=== PATIENT | male | born 1960 | race Caucasian/White ===

== ENCOUNTER 2018-10-02 11:51 | Inpatient (IN) | payer OTHER ==
[2018-10-02] MEDS ORDERED: POLYETHYLENE GLYCOL 3350 17 GM PKT PO PRN (13:52)
[2018-10-02] MEDS ORDERED: IBUPROFEN 200 MG TAB PO PRN (13:52)
[2018-10-02] MEDS ORDERED: ACETAMINOPHEN 325 MG SUPP PR PRN (13:52)
[2018-10-02] MEDS ORDERED: METHOCARBAMOL 750 MG TAB PO PRN (13:52)
[2018-10-02] MEDS ORDERED: ALPRAZolam 0.25 MG TAB PO PRN (13:52)
[2018-10-02] MEDS ORDERED: MIDODRINE HCL 10 MG TAB PO PRN (13:52)
[2018-10-02] MEDS ORDERED: TEARS/DEXTRAN 70/HYPROMELLOSE 15 ML OPHT.BTL EACHEYE PRN (14:21)
[2018-10-02] MEDS: ACET/CAFFEINE/BUTA FIORICET 1 EACH TAB PO PRN ×2 (14:47→21:47)
[2018-10-02] MEDS ORDERED: *MD ORDERING ONLY-MEDROL DOSE PAK PO SCH (15:30)
--- NOTE | 2018-10-02 17:44 | GHP ---
[f rep st] HISTORY AND PHYSICAL POST ADMISSION PHYSICIAN EVALUATION AND REHABILITATION TREATMENT PLAN DATE OF ADMISSION: 10/02/2018 DATE OF EVALUATION: October 02, 2018 TIME OF EVALUATION: 1555 REFERRING FACILITY: [facility] REFERRING PHYSICIAN: Dr Wong IMPAIRMENT GROUP: 1.1. DATE OF ONSET: 09/22/2018 REFERRING PHYSICIAN: Dr. Wong CONSULTING PHYSICIANS: He was seen by [facility], Dr. Hernandez, and Neurointerventional Radiology, Dr. Lujan. REHABILITATION DIAGNOSIS: Right-sided cerebrovascular accident with left hemiparesis, left dalila-neglect and dysphagia. ETIOLOGIC DIAGNOSIS: Left body involvement (right brain). DATE OF SURGERY: 09/26/2018 HISTORY OF PRESENT ILLNESS: This patient was admitted to [facility] on 09/22/2018 with headaches and light sensitivity, left-sided numbness and weakness, dizziness, gait abnormality, cognitive slowing and difficulty speaking. These symptoms had been ongoing for 2-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 He was not a tPA candidate because of the duration of symptoms. He was started on a heparin drip. On 09/25/2018, he had acute worsening of his left-sided deficits and was found to have a new right frontal MCA occlusion, as well as a right posterior division occlusion. On 09/26/2018, he had angioplasty and stent placement of the right internal carotid artery dissection/occlusion. Subsequent brain imaging showed evolution of right-sided cerebral infarctions involving the occipital, parietal and frontal lobes including white matter. During his hospitalization, he was treated with midodrine to keep blood pressure up, either prior or subsequent to the stenting. He was on multiple medications to treat the headache including ibuprofen, Fioricet methocarbamol and acetaminophen. Ultimately, he was placed on a Medrol Dosepak and has had a good response. Otherwise, he was medically stable and appropriate for inpatient rehabilitation. STUDIES AND LABS DURING HIS STAY: I do not have a comprehensive list. However , blood tests were unremarkable. Basic metabolic profile was normal but for slightly elevated blood glucoses of 108 and 111. CBCs were normal with no anemia or thrombocytopenia, and no elevated white count. PT and INR were normal. Lipid panel showed a cholesterol of 142, triglycerides of 150 and an HDL of 39. He had multiple brain imaging studies including CT angiograms, CT scans and MRI studies. The most recent study that I have access to is a CT head without contrast done on 09/29/2018. This showed (1) evolving infarcts in the right MCA distribution posteriorly, which were slightly more pronounced compared with 09/26/2018; (2) a tiny 2 mm area of hyperattenuation in the region of the infarct posteriorly, which was likely a tiny hemorrhage, and mild effacement of sulci in the region of the infarct with no shift in midline structures. Echocardiogram showed normal left ventricular systolic function, an ejection fraction of 65%, mild concentric LVH, normal diastolic function, enlarged right ventricle but normal right ventricular systolic function. He had mild aortic regurgitation, trace to mild mitral regurgitation, trace tricuspid regurgitation and a mildly enlarged right atrium. There was no evidence of an ASD or PFO. by bubble study. He had mild dilation of the proximal ascending aorta at 3.97 cm. PRECAUTIONS: He is a fall risk, and he has aspiration precautions. ACTIVE COMORBIDITIES: He has the tier 3 comorbidity of hemiparesis. Otherwise , there are no active tier 1, tier 2 or tier 3 comorbidities. PAST MEDICAL HISTORY: Hypertension. PAST SURGICAL HISTORY: He had a tonsillectomy as a child. PREHOSPITAL MEDICATIONS: He was taking losartan/hydrochlorothiazide and tamsulosin 0.4 mg p.o. daily. ADMISSION MEDICATIONS: 1. Acetaminophen/caffeine/butalbital 1 p.o. q.4 hours p.r.n. 2. Acetaminophen 650 mg p.o. q.6 hours p.r.n. 3. Alprazolam 0.25 mg p.o. q.6 hours p.r.n. 4. Aspirin 81 mg p.o. daily. 5. Atorvastatin 80 mg p.o. q.h.s. 6. Cetirizine 10 mg p.o. daily. 7. Clopidogrel 75 mg p.o. daily. 8. Fluoxetine 20 mg p.o. daily. 9. Ibuprofen 400 mg p.o. q.4-6 hours p.r.n. 10. Melatonin 6 mg p.o. q.h.s. p.r.n. 11. Methocarbamol 750 mg p.o. q.8 hours p.r.n. 12. Methylprednisolone on a Dosepak with tapering dose over 5 days. 13. Midodrine 10 mg p.o. daily p.r.n. systolic blood pressure less than 110. 14. Pantoprazole 40 mg p.o. daily. 15. Polyethylene glycol 17 g p.o. daily p.r.n. 16. Senna/docusate 1 tab p.o. b.i.d. 17. Tamsulosin 0.4 mg p.o. daily. 18. Artificial Tears. ALLERGIES: He has an allergy to doxycycline, which caused flu-like symptoms. PSYCHOSOCIAL HISTORY: He is and lives with his . He has 2 adult children. They are approximately 2 steps to enter the house and then there are 14 steps to get to the 2nd level. He can probably live on 1 level if he needs to. He quit smoking approximately 8 years ago. He works in [employer], and he is in the [employer]. FAMILY HISTORY: Noncontributory. He denies any history of aneurysms or blood clots. REVIEW OF SYSTEMS: He has a slight headache right now. It is not pounding, and his headaches have not been pounding. There are no vision changes associated with it and no nausea. He is aware of loss of sensation on his left cheek and in his left arm and leg, and he is aware of weakness in the left arm and leg. He denies fevers or chills, recent weight change, cough or dyspnea, nausea, vomiting, constipation or diarrhea. He has a good appetite. He denies dysuria or urinary frequency and had a good response to tamsulosin when it was begun. He denies joint pain or joint swelling. He denies calf tenderness. He has had insomnia in the hospital but slept well last night and this afternoon was able to take a nap after he arrived at [facility]. Otherwise, a 10-point review of systems is negative. PHYSICAL EXAMINATION: VITAL SIGNS: Blood pressure is 148/94. Heart rate is 58. Respiratory rate is 16. Oxygen saturation is 96% on room air. Temperature is 36.6 degrees centigrade. His weight is 84.1 kg. His body mass index is recorded at 36.2, but I believe his height measurement is probably erroneous as he does not appear to be very obese. HEENT: Extraocular movements are intact. Pupils are equal, round and reactive to light. Mucous membranes are moist. Dentition is in good condition. He has an uncrowded airway, Mallampati class 2. NECK: Supple with no bruits. HEART: There is a regular rate and rhythm with no murmurs, rubs or gallops. LUNGS: Clear to auscultation bilaterally. ABDOMEN: Soft, nontender, nondistended with normoactive bowel sounds and no hepatosplenomegaly. EXTREMITIES: There is no cyanosis, clubbing or edema. Radial and dorsalis pedis pulses are 2+ bilaterally. There is no calf tenderness. NEUROLOGIC: He is alert and oriented x3. Cranial nerves 2-12 are grossly intact, though he has a mild left facial droop and some loss of sensation in the left periorbital region. He has full range of motion and near full strength at the left trapezius, deltoid, biceps and triceps. He is very weak at the left wrist and finger flexion/ extension. He can supinate and pronate the left forearm and has antigravity strength at the wrist. Left leg overall is 4 to 4+ over 5. Motor strength on the right is normal. He has reduced sensation to light touch on the left upper and lower extremities. He has loss of sensation in the left leg with double simultaneous stimulation of the left and right. Deep tendon reflexes are 2+ bilaterally at the biceps, patellar and Achilles tendons. Visual lazcano by confrontation show a left lower quadrant visual field deficit. SKIN: There are no skin rashes or skin breakdown. CURRENT LEVEL OF FUNCTION: Per the preadmission screen, he had dysphagia and was on a dysphagia 3 diet with thin liquids. Grooming was done with setup and supervision from the seated position. Bathing required minimal assistance. Dressing required moderate assistance for the upper body and minimal assistance for his socks. Toileting required minimal assist. Bed mobility required minimal assist. Transfers [id number] required minimal assist including toilet and shower transfers. He was using a dalila walker. Seated balance: Static was considered intact. Dynamic required standby assist. Standing balance: Static required close standby assist and dynamic required minimal assist. He had decreased endurance. He was able to walk 100 feet with a dalila walker and minimal assist. There were 2 episodes of loss of balance requiring moderate assist. Communication was intact. Regarding cognition, he was observed to have left neglect. He could follow simple direction. He required some repetition for new learning. He had impaired judgment and impaired problem solving. On today's exam, he appears to have improved strength on the left upper and lower extremities and improved bed mobility compared to the preadmission screen. Otherwise, there are no significant changes. IMPRESSION: This is a 58-year-old man who had bilateral carotid dissections and a right internal carotid artery occlusion. These caused cerebrovascular accidents throughout the right cerebral hemisphere, but most prominently in the posterior right frontal lobe. He underwent stenting of the right internal carotid artery and has had resumption of blood flow, and he has had some improvement in his symptoms of left hemiparesis. He has associated hypertension and was on an antihypertensive medication, which is no longer being given at present. He was being treated with midodrine to maintain a systolic blood pressure above 110. In the hospital for stroke treatment, he had initiation of aspirin, clopidogrel and a statin medication. He also had treatment of headache, which apparently was quite problematic, and ultimately is being treated with a Medrol Dosepak. He had insomnia which is improving. Fluoxetine was begun presumably for neuro recovery. He was medically stable and appropriate for inpatient rehabilitation. His goal is to complete a rehabilitation stay and then return home with his family and supportive services. For a safe discharge, he will need to advance to modified independent level with self-care and functional mobility using the least restrictive device. He will need to demonstrate safety and insight and be able to carry out daily functions safely and independently. He will have therapy with physical therapy, occupational therapy, and speech and language pathology for 60 minutes per day for each discipline on 5-7 days of the week. His expected duration of stay is 10-14 days. Upon discharge, it is anticipated that he will continue to benefit from outpatient occupational therapy, speech and language pathology, and physical therapy, as well as a stroke support group. PLAN: 1. Cerebrovascular accident due to bilateral carotid and right internal carotid artery dissection and occlusion, status post stenting of the right internal carotid artery. PT and OT to optimize mobility and activities of daily living toward the modified independent level. 2. Dysphagia and possible cognitive effects of cerebrovascular accident to be assessed and treated per speech and language pathology. Continue dysphagia 3 diet initially. 3. Secondary prevention of CVA. Continue aspirin and clopidogrel. Presumably , he requires the clopidogrel because of the presence of a stent. Continue atorvastatin. Attention to blood pressure and initiate antihypertensive medication as indicated. Per conversation with on-call hospitalist at [facility], 10/02/2018, blood pressure parameters are to keep systolic between 110 and 160. 4. Headaches, likely related to carotid artery dissections. He may have relief of headaches as he sleeps better. Will continue the Medrol Dosepak, as well as methocarbamol and acetaminophen. Will discontinue ibuprofen due to increased risk of GI bleed, together with the other antiplatelet agents and the methylprednisolone. 5. Seasonal allergies, on cetirizine. 6. BPH, on tamsulosin. 7. Followup per hospital discharge paperwork is planned with Dr. Lujan with Neurointerventional Radiology in approximately 2 weeks and with primary care provider, Dr. Jet Leroy, after his discharge from rehabilitation. /[id number]/MODL MTDD
[2018-10-02] MEDS: ATORVASTATIN CALCIUM 40 MG TAB PO SCH (20:49)
[2018-10-02] MEDS: SENNOSIDES/DOCUSATE SODIUM TAB PO SCH (20:50)
[2018-10-02] MEDS ORDERED: MELATONIN 3 MG TAB PO PRN (21:00)
[2018-10-02] MEDS ORDERED: methylPREDNISolone 4 MG TAB PO SCH (21:00)
[2018-10-03] MEDS: ACET/CAFFEINE/BUTA FIORICET 1 EACH TAB PO PRN ×2 (06:04→23:00)
[2018-10-03] MEDS: TAMSULOSIN HCL 0.4 MG CAP PO SCH (08:35)
[2018-10-03] MEDS: FLUoxetine 20 MG CAP PO SCH (08:35)
[2018-10-03] MEDS: ASPIRIN EC 81 MG TAB PO SCH (08:35)
[2018-10-03] MEDS: CLOPIDOGREL BISULFATE 75 MG TAB PO SCH (08:35)
[2018-10-03] MEDS: SENNOSIDES/DOCUSATE SODIUM TAB PO SCH ×2 (08:35→21:09)
[2018-10-03] MEDS: PANTOPRAZOLE SODIUM 40 MG TAB PO SCH (08:35)
[2018-10-03] MEDS: CETIRIZINE 10 MG TAB PO SCH (08:35)
[2018-10-03] MEDS: methylPREDNISolone 4 MG TAB PO SCH ×4 (08:35→21:09)
--- NOTE | 2018-10-03 11:01 | PDOREHIP ---
Admission [facility] - Admission - 3 Day Assessment Period Admission Date/Day 1: 10/02/18 Day 2: 10/03/18 Day 3: 10/04/18 - Active Diagnoses Comorbidities and Co-existing Conditions at Admission: 74925. None of the Above - Skin Conditions Unhealed Pressure Ulcer (1 or more/Stage 1 or >)-Admission: 0. No # Stage 1 Pressure Ulcers-Admission: 0 # Stage 2 Pressure Ulcers-Admission: 0 # Stage 3 Pressure Ulcers-Admission: 0 # Stage 4 Pressure Ulcers-Admission: 0 # Unstageable Pressure Ulcers (Non-remove Dress)-Admission: 0 # Unstageable Pressure Ulcers (Slough/Eschar)-Admission: 0 # Unstageable Pressure Ulcers (Deep Tissue Injury)-Admission: 0
--- NOTE | 2018-10-03 11:01 | SOAPPROG ---
SOAP Progress Note Assessment/Plan: Assessment: Cerebrovascular accident due to bilateral carotid and right internal carotid artery dissection and occlusion, status post stenting of the right internal carotid artery. PT and OT to optimize mobility and activities of daily living toward the modified independent level. Dysphagia and possible cognitive effects of cerebrovascular accident to be assessed and treated per speech and language pathology. Continue dysphagia 3 diet initially. Secondary prevention of CVA. Continue aspirin and clopidogrel. Continue atorvastatin. Attention to blood pressure and initiate antihypertensive medication as indicated. Per conversation with on-call hospitalist at [facility], 10/02/2018, blood pressure parameters are to keep systolic between 110 and 160. Headaches, likely related to carotid artery dissections. He may have relief of headaches as he sleeps better. Will continue the Medrol Dosepak, as well as methocarbamol and acetaminophen. Will discontinue ibuprofen due to increased risk of GI bleed, together with the other antiplatelet agents and the methylprednisolone. Seasonal allergies, on cetirizine. BPH, on tamsulosin. Followup per hospital discharge paperwork is planned with Dr. Lujan with Neurointerventional Radiology in approximately 2 weeks and with primary care provider, Dr. Jet Leroy, after his discharge from rehabilitation. 10/03/18 12:03 Subjective: Awoke at night with headache. Per chart review, no medication was given. He was able to return to sleep. Had headache upon arising in the morning and was given Fioricet. Headache is right-sided originating in the neck and radiating towards his eye. It is not pounding. There is no associated nausea. Otherwise without complaints. Good appetite, no nausea, vomiting, constipation , diarrhea, no cough or dyspnea, no fevers or chills. Objective: Vital Signs Temp Pulse Resp BP Pulse Ox 36.4 C 56 L 18 154/100 H 93 10/03/18 08:00 10/03/18 08:00 10/03/18 08:00 10/03/18 08:00 10/03/18 08:00 10/02/18 10/03/18 10/04/18 05:59 05:59 05:59 Intake Total 420 240 Output Total 400 Balance 420 -160 Physical Exam - Physical Exam General Appearance: WD/WN, alert, no apparent distress Respiratory: normal breath sounds, No crackles, No rhonchi, No wheezing Cardiac/Chest: regular rate, rhythm, No edema, No diastolic murmur, No systolic murmur Skin: normal color, warm/dry Neuro/Psych: alert, normal mood/affect, oriented x 3, motor weakness (Left upper and lower extremities) ICD10 Worksheet Patient Problems: Problems Problem Status Onset CVA (cerebral vascular accident) Acute
[2018-10-03] MEDS: ACETAMINOPHEN 325 MG TAB PO PRN (15:32)
[2018-10-03] MEDS: ATORVASTATIN CALCIUM 40 MG TAB PO SCH (21:08)
[2018-10-04] MEDS: CLOPIDOGREL BISULFATE 75 MG TAB PO SCH (08:25)
[2018-10-04] MEDS: FLUoxetine 20 MG CAP PO SCH (08:25)
[2018-10-04] MEDS: methylPREDNISolone 4 MG TAB PO SCH ×3 (08:25→21:32)
[2018-10-04] MEDS: SENNOSIDES/DOCUSATE SODIUM TAB PO SCH ×2 (08:25→21:32)
[2018-10-04] MEDS: CETIRIZINE 10 MG TAB PO SCH (08:25)
[2018-10-04] MEDS: PANTOPRAZOLE SODIUM 40 MG TAB PO SCH (08:25)
[2018-10-04] MEDS: TAMSULOSIN HCL 0.4 MG CAP PO SCH (08:25)
[2018-10-04] MEDS: ASPIRIN EC 81 MG TAB PO SCH (08:26)
[2018-10-04] MEDS: ACETAMINOPHEN 325 MG TAB PO PRN ×2 (09:13→14:58)
--- NOTE | 2018-10-04 11:50 | SOAPPROG ---
SOAP Progress Note Assessment/Plan: Assessment: Cerebrovascular accident due to bilateral carotid and right internal carotid artery dissection and occlusion, status post stenting of the right internal carotid artery. * Initial functional independence measure is 79 on 10/04/2018. Standby assist for bed mobility and transfers. Ambulated 200 ft with standby assist to contact guard assist using a quad cane. Shows decreased motor planning and decreased proprioception on the left upper extremity. Did grooming and hygiene standing. Required positioning of the left hand. Was unable to locate the toothbrush which was on the left side of the sink. Minimal assist for upper body and lower body dressing. * Continue PT and OT to optimize mobility and activities of daily living toward the modified independent level. Dysphagia and cognitive effects of cerebrovascular accident. * Continue dysphagia 3 diet initially. * Moderate deficits to attention, executive function, problem solving and reasoning. * Continue FOOD INSPECTOR. Secondary prevention of CVA. Continue aspirin and clopidogrel. Continue atorvastatin. Attention to blood pressure and initiate antihypertensive medication as indicated. Per conversation with on-call hospitalist at [facility], 10/02/2018, blood pressure parameters are to keep systolic between 110 and 160. Headaches, likely related to carotid artery dissections. He may have relief of headaches as he sleeps better. Will continue the Medrol Dosepak, as well as methocarbamol and acetaminophen. Will discontinue ibuprofen due to increased risk of GI bleed, together with the other antiplatelet agents and the methylprednisolone. Elevated blood pressure and history of hypertension. * Observe for improvement as methylprednisolone is tapered. Consider restart of losartan. Seasonal allergies, on cetirizine. BPH, on tamsulosin. DISPOSITION: Attended staffing, 15 min. Discussed with case management, nursing, dietitian, PT, OT, FOOD INSPECTOR. Lives at home with and for other adults including adopted son and a homeless friend of the son. Had been working 2 jobs as well as serving in the [employer]. Was considering selling home and moving to . Case Management to work with patient and family are. Plans given his level of disability. Tentative discharge date set for 10/16/2018. Followup per hospital discharge paperwork is planned with Dr. Lujan with Neurointerventional Radiology in approximately 2 weeks (after discharge 2018) and with primary care provider, Dr. Jet Leroy. 10/04/18 11:44 Subjective: Had headache overnight, which responded to medication. Currently headache is approximately 2/10. Otherwise without complaints. No cough or dyspnea, no fevers or chills.. Other than awakening in pain, overall he slept well. Objective: Vital Signs Temp Pulse Resp BP Pulse Ox 36.6 C 66 16 137/91 H 92 10/04/18 05:21 10/04/18 10:13 10/04/18 05:21 10/04/18 10:13 10/04/18 05:21 10/03/18 10/04/18 10/05/18 05:59 05:59 05:59 Intake Total 420 1180 Output Total 1999 Balance 420 -820 - Time Spent With Patient Time Spent With Patient: Greater than 35 min floor time today, including more than 50% of time in coordination of care during staffing meeting, and counseling patient and . Physical Exam - Physical Exam General Appearance: WD/WN, alert, no apparent distress Respiratory: normal breath sounds, No crackles, No rhonchi, No wheezing Cardiac/Chest: regular rate, rhythm, No diastolic murmur, No systolic murmur Skin: normal color, warm/dry Neuro/Psych: alert, normal mood/affect, oriented x 3, motor weakness (Left upper extremity) ICD10 Worksheet Patient Problems: Problems Problem Status Onset CVA (cerebral vascular accident) Acute
[2018-10-04] MEDS: ATORVASTATIN CALCIUM 40 MG TAB PO SCH (21:32)
[2018-10-05] MEDS: ACET/CAFFEINE/BUTA FIORICET 1 EACH TAB PO PRN ×2 (06:44→13:34)
[2018-10-05] MEDS: methylPREDNISolone 4 MG TAB PO SCH ×2 (07:28→20:52)
[2018-10-05] MEDS: SENNOSIDES/DOCUSATE SODIUM TAB PO SCH ×2 (08:48→21:07)
[2018-10-05] MEDS: CLOPIDOGREL BISULFATE 75 MG TAB PO SCH (08:48)
[2018-10-05] MEDS: FLUoxetine 20 MG CAP PO SCH (08:48)
[2018-10-05] MEDS: ASPIRIN EC 81 MG TAB PO SCH (08:49)
[2018-10-05] MEDS: TAMSULOSIN HCL 0.4 MG CAP PO SCH (08:49)
[2018-10-05] MEDS: PANTOPRAZOLE SODIUM 40 MG TAB PO SCH (08:49)
[2018-10-05] MEDS: CETIRIZINE 10 MG TAB PO SCH (08:49)
--- NOTE | 2018-10-05 11:55 | SOAPPROG ---
SOAP Progress Note Assessment/Plan: Assessment: Cerebrovascular accident due to bilateral carotid and right internal carotid artery dissection and occlusion, status post stenting of the right internal carotid artery. * Initial functional independence measure is 79 on 10/04/2018. Standby assist for bed mobility and transfers. Ambulated 200 ft with close standby assist to contact guard assist using a quad cane. Shows decreased motor planning and decreased proprioception on the left upper extremity. Did grooming and hygiene standing. Required positioning of the left hand. Was unable to locate the toothbrush which was on the left side of the sink. Minimal assist for upper body and lower body dressing. * Has fall risk. Has decreased insight and judgment. Risk is compounded by the left visual field cut and left hemineglect. He requires continual supervision. * Continue PT and OT to optimize mobility and activities of daily living toward the modified independent level. Dysphagia and cognitive effects of cerebrovascular accident. * Continue dysphagia 3 diet initially. * Moderate deficits to attention, executive function, problem solving and reasoning. * Continue ASSISTANT MANAGER/EMBALMER. Secondary prevention of CVA. Continue aspirin and clopidogrel. Continue atorvastatin. Attention to blood pressure and initiate antihypertensive medication as indicated. Per conversation with on-call hospitalist at [facility], 10/02/2018, blood pressure parameters are to keep systolic between 110 and 160. Headaches, likely related to carotid artery dissections. He may have relief of headaches as he sleeps better. Will continue the Medrol Dosepak, as well as methocarbamol and acetaminophen. Will discontinue ibuprofen due to increased risk of GI bleed, together with the other antiplatelet agents and the methylprednisolone. * Will schedule acetaminophen at bedtime starting 10/05/2018 to try to prevent midnight headaches. Elevated blood pressure and history of hypertension. * Observe for improvement as methylprednisolone is tapered. Consider restart of losartan. Seasonal allergies, on cetirizine. BPH, on tamsulosin. DISPOSITION: Attended staffing, 15 min, 10/04/2018.. Discussed with case management, nursing, dietitian, PT, OT, ASSISTANT MANAGER/EMBALMER. Lives at home with and for other adults including adopted son and a homeless friend of the son. Had been working 2 jobs as well as serving in the [employer]. Was considering selling home and moving to . Case Management to work with patient and family are. Plans given his level of disability. Tentative discharge date set for 2018. Followup per hospital discharge paperwork is planned with Dr. Lujan with Neurointerventional Radiology in approximately 2 weeks (after discharge 2018) and with primary care provider, Dr. Jet Leroy. 10/05/18 11:51 Subjective: No complaints. Slept well. No fevers or chills, no cough or dyspnea. Had headache overnight sometime after midnight, resolved with Fioricet. Objective: Vital Signs Temp Pulse Resp BP Pulse Ox 36.4 C 59 L 16 155/96 H 95 10/05/18 06:33 10/05/18 06:33 10/05/18 06:33 10/05/18 06:33 10/05/18 06:33 10/04/18 10/05/18 10/06/18 05:59 05:59 05:59 Intake Total 1180 800 710 Output Total 1999 2350 200 Balance -820 -1550 510 Physical Exam - Physical Exam General Appearance: WD/WN, alert, no apparent distress Respiratory: normal breath sounds, No crackles, No rhonchi, No wheezing Cardiac/Chest: regular rate, rhythm, No diastolic murmur, No systolic murmur Skin: normal color, warm/dry Neuro/Psych: alert, normal mood/affect, oriented x 3, motor weakness (Left upper extremity) ICD10 Worksheet Patient Problems: Problems Problem Status Onset CVA (cerebral vascular accident) Acute
[2018-10-05] MEDS: ATORVASTATIN CALCIUM 40 MG TAB PO SCH (20:52)
[2018-10-05] MEDS: ACETAMINOPHEN 325 MG TAB PO SCH (20:52)
[2018-10-06] MEDS: ACETAMINOPHEN 325 MG TAB PO PRN ×3 (07:25→19:49)
[2018-10-06] MEDS ORDERED: methylPREDNISolone 4 MG TAB PO SCH (07:30)
[2018-10-06] MEDS: CETIRIZINE 10 MG TAB PO SCH (07:56)
[2018-10-06] MEDS: CLOPIDOGREL BISULFATE 75 MG TAB PO SCH (07:56)
[2018-10-06] MEDS: FLUoxetine 20 MG CAP PO SCH (07:56)
[2018-10-06] MEDS: SENNOSIDES/DOCUSATE SODIUM TAB PO SCH ×2 (07:56→21:24)
[2018-10-06] MEDS: TAMSULOSIN HCL 0.4 MG CAP PO SCH (07:56)
[2018-10-06] MEDS: PANTOPRAZOLE SODIUM 40 MG TAB PO SCH (07:57)
[2018-10-06] MEDS: ASPIRIN EC 81 MG TAB PO SCH (07:57)
--- NOTE | 2018-10-06 11:04 | SOAPPROG ---
SOAP Progress Note Assessment/Plan: Assessment: Cerebrovascular accident due to bilateral carotid and right internal carotid artery dissection and occlusion, status post stenting of the right internal carotid artery. * Initial functional independence measure is 79 on 10/04/2018. Standby assist for bed mobility and transfers. Ambulated 200 ft with close standby assist to contact guard assist using a quad cane. Shows decreased motor planning and decreased proprioception on the left upper extremity. Did grooming and hygiene standing. Required positioning of the left hand. Was unable to locate the toothbrush which was on the left side of the sink. Minimal assist for upper body and lower body dressing. * Has fall risk. Has decreased insight and judgment. Risk is compounded by the left visual field cut and left hemineglect. He requires continual supervision. * Continue PT and OT to optimize mobility and activities of daily living toward the modified independent level. Dysphagia and cognitive effects of cerebrovascular accident. * Continue dysphagia 3 diet initially. * Moderate deficits to attention, executive function, problem solving and reasoning. 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 Secondary prevention of CVA. Continue aspirin and clopidogrel. Continue atorvastatin. Attention to blood pressure and initiate antihypertensive medication as indicated. Per conversation with on-call hospitalist at [facility], 10/02/2018, blood pressure parameters are to keep systolic between 110 and 160. Headaches, likely related to carotid artery dissections. He may have relief of headaches as he sleeps better. Will continue the Medrol Dosepak, as well as methocarbamol and acetaminophen. Will discontinue ibuprofen due to increased risk of GI bleed, together with the other antiplatelet agents and the methylprednisolone. * Slept well after initiating scheduled acetaminophen at bedtime starting 2018 to try to prevent midnight headaches. Elevated blood pressure and history of hypertension. * Observe for improvement as methylprednisolone is tapered; last dose is 2017. Consider restart of losartan.. Seasonal allergies, on cetirizine. BPH, on tamsulosin. DISPOSITION: Attended staffing, 15 min, 10/04/2018.. Discussed with case management, nursing, dietitian, PT, OT, CONTROL INTEGRATION ENGINEER. Lives at home with and for other adults including adopted son and a homeless friend of the son. Had been working 2 jobs as well as serving in the [employer]. Was considering selling home and moving to . Case Management to work with patient and family are. Plans given his level of disability. Tentative discharge date set for 2018. Followup per hospital discharge paperwork is planned with Dr. Lujan with Neuro[facility] in approximately 2 weeks (after discharge 2018) and with primary care provider, Dr. Jet Leroy. 10/06/18 11:02 Subjective: No complaints. Notes improved movement of his left hand. Has not had any improvement in sensation however. Did not awaken with pain overnight but had a headache in the morning for which he took acetaminophen. Objective: Vital Signs Temp Pulse Resp BP Pulse Ox 36.5 C 57 L 18 149/98 H 92 10/06/18 05:08 10/06/18 05:08 10/06/18 05:08 10/06/18 05:08 10/06/18 05:08 10/05/18 10/06/18 10/07/18 05:59 05:59 05:59 Intake Total 800 1710 240 Output Total 2350 200 1 Balance -1550 1510 239 Physical Exam - Physical Exam General Appearance: WD/WN, alert, no apparent distress Respiratory: normal breath sounds, No crackles, No rhonchi, No wheezing Cardiac/Chest: regular rate, rhythm, No edema, No diastolic murmur, No systolic murmur Skin: normal color, warm/dry Neuro/Psych: alert, normal mood/affect, oriented x 3, motor weakness (Left upper extremity. Shows improved movement of wrist and fingers.), sensory deficit (Left upper extremity) ICD10 Worksheet Patient Problems: Problems Problem Status Onset CVA (cerebral vascular accident) Acute
[2018-10-06] MEDS: ACET/CAFFEINE/BUTA FIORICET 1 EACH TAB PO PRN (20:23)
[2018-10-06] MEDS: ATORVASTATIN CALCIUM 40 MG TAB PO SCH (21:24)
[2018-10-06] MEDS: ACETAMINOPHEN 325 MG TAB PO SCH (21:47)
[2018-10-06] MEDS ORDERED: hydrALAZINE 10 MG TAB PO ONE (22:00)
[2018-10-07] MEDS: ACETAMINOPHEN 325 MG TAB PO PRN ×2 (03:48→10:29)
[2018-10-07] MEDS: ACET/CAFFEINE/BUTA FIORICET 1 EACH TAB PO PRN ×2 (06:37→18:47)
[2018-10-07] MEDS: ASPIRIN EC 81 MG TAB PO SCH (08:41)
[2018-10-07] MEDS: PANTOPRAZOLE SODIUM 40 MG TAB PO SCH (08:41)
[2018-10-07] MEDS: CETIRIZINE 10 MG TAB PO SCH (08:41)
[2018-10-07] MEDS: SENNOSIDES/DOCUSATE SODIUM TAB PO SCH ×2 (08:41→21:07)
[2018-10-07] MEDS: TAMSULOSIN HCL 0.4 MG CAP PO SCH (08:41)
[2018-10-07] MEDS: CLOPIDOGREL BISULFATE 75 MG TAB PO SCH (08:41)
[2018-10-07] MEDS: FLUoxetine 20 MG CAP PO SCH (08:41)
[2018-10-07] MEDS: LOSARTAN POTASSIUM 25 MG TAB PO SCH (08:48)
--- NOTE | 2018-10-07 09:09 | SOAPPROG ---
SOAP Progress Note Assessment/Plan: Assessment/Plan: Cerebrovascular accident due to bilateral carotid and right internal carotid artery dissection and occlusion, status post stenting of the right internal carotid artery. * Initial functional independence measure is 79 on 10/04/2018. Standby assist for bed mobility and transfers. Ambulated 200 ft with close standby assist to contact guard assist using a quad cane. Shows decreased motor planning and decreased proprioception on the left upper extremity. Did grooming and hygiene standing. Required positioning of the left hand. Was unable to locate the toothbrush which was on the left side of the sink. Minimal assist for upper body and lower body dressing. * Has fall risk. Has decreased insight and judgment. Risk is compounded by the left visual field cut and left hemineglect. He requires continual supervision. * Continue PT and OT to optimize mobility and activities of daily living toward the modified independent level. Dysphagia and cognitive effects of cerebrovascular accident. * Upgrade to a regular diet on 10/06 - monitor for any aspiration * Moderate deficits to attention, executive function, problem solving and reasoning. 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 Secondary prevention of CVA. Continue aspirin and clopidogrel. Continue atorvastatin. Attention to blood pressure and initiate antihypertensive medication as indicated. Per conversation with on-call hospitalist at [facility], 10/02/2018, blood pressure parameters are to keep systolic between 110 and 160. Headaches, likely related to carotid artery dissections. Significant pain on night of 10/06- responded to meds and no Neurologic changes. * Completed Medrol Dosepak 10/05 as well as methocarbamol and acetaminophen. * Discontinued ibuprofen due to increased risk of GI bleed, together with the other antiplatelet agents and the methylprednisolone. Elevated blood pressure and history of hypertension. * Restarted Losartan 25mg on 10/07. * Add prn hydralazine as we monitor for BP's >170. Seasonal allergies, on cetirizine. BPH, on tamsulosin. DISPOSITION: Discussed with case RN and OT. Lives at home with and for other adults including adopted son and a homeless friend of the son. Had been working 2 jobs as well as serving in the [employer]. Was considering selling home and moving to . Case Management to work with patient and family are. Plans given his level of disability. Tentative discharge date set for 2018. Followup per hospital discharge paperwork is planned with Dr. Lujan with Neurointerventional Radiology in approximately 2 weeks (after discharge 2018) and with primary care provider, Dr. Jet Leroy. 10/07/18 09:05 Subjective: doing well this morning. Pain around 2-3/10. Reports that had a significant incident of pain last night. Had been in a hot shower for a time. Was pretty excruciating. This travel writer was called and per RN report - no change in neurologic presentation. Pt was given meds and brought to bed and the pain did subside. BP was pretty elevated at around 170. doing well this morning. - no fevers/chills, Objective: Vital Signs Temp Pulse Resp BP Pulse Ox 97.7 F 60 15 157/110 H 93 10/07/18 06:22 10/07/18 07:20 10/07/18 06:22 10/07/18 08:48 10/07/18 06:22 10/06/18 10/07/18 10/08/18 05:59 05:59 05:59 Intake Total 1710 465 250 Output Total 200 1 Balance 1510 464 250 Physical Exam - Physical Exam General Appearance: alert, no apparent distress, other (Sitting at the breakfast table eating with his ) EENT: other (Left sided droop, mmm, Has difficulty maintaining food on the left side. ) Respiratory: other (Non-labored breathing. no audible wheezing. ) Cardiac/Chest: regular rate, rhythm Abdomen: non-tender Skin: normal color Neuro/Psych: alert, other (Interacted well and able to answer questions. Decreased to absent sensation through the left side. Left hemineglect - requires some cueing at times. pretty good vision to the left. Strength - 4/5 for biceps/shoulder abduction, 4+/5 triceps, 3/5 for we, ff) ICD10 Worksheet Patient Problems: Problems Problem Status Onset CVA (cerebral vascular accident) Acute
[2018-10-07] MEDS ORDERED: hydrALAZINE 10 MG TAB PO PRN (10:00)
[2018-10-07] MEDS: ACETAMINOPHEN 325 MG TAB PO SCH (21:07)
[2018-10-07] MEDS: ATORVASTATIN CALCIUM 40 MG TAB PO SCH (21:07)
[2018-10-08] MEDS: ACETAMINOPHEN 325 MG TAB PO PRN ×2 (06:33→18:07)
[2018-10-08] MEDS: SENNOSIDES/DOCUSATE SODIUM TAB PO SCH ×2 (08:15→21:06)
[2018-10-08] MEDS: PANTOPRAZOLE SODIUM 40 MG TAB PO SCH (08:15)
[2018-10-08] MEDS: TAMSULOSIN HCL 0.4 MG CAP PO SCH (08:15)
[2018-10-08] MEDS: FLUoxetine 20 MG CAP PO SCH (08:15)
[2018-10-08] MEDS: ASPIRIN EC 81 MG TAB PO SCH (08:15)
[2018-10-08] MEDS: CLOPIDOGREL BISULFATE 75 MG TAB PO SCH (08:15)
[2018-10-08] MEDS: LOSARTAN POTASSIUM 25 MG TAB PO SCH (08:16)
[2018-10-08] MEDS: CETIRIZINE 10 MG TAB PO SCH (08:16)
--- NOTE | 2018-10-08 09:53 | SOAPPROG ---
SOAP Progress Note Assessment/Plan: Assessment/Plan: Cerebrovascular accident due to bilateral carotid and right internal carotid artery dissection and occlusion, status post stenting of the right internal carotid artery. * Initial functional independence measure is 79 on 10/04/2018. Standby assist for bed mobility and transfers. Ambulated 200 ft with close standby assist to contact guard assist using a quad cane. Shows decreased motor planning and decreased proprioception on the left upper extremity. Did grooming and hygiene standing. Required positioning of the left hand. Was unable to locate the toothbrush which was on the left side of the sink. Minimal assist for upper body and lower body dressing. * Has fall risk. Has decreased insight and judgment. Risk is compounded by the left visual field cut and left hemineglect. He requires continual supervision. * Continue PT and OT to optimize mobility and activities of daily living toward the modified independent level. Dysphagia and cognitive effects of cerebrovascular accident. * Upgrade to a regular diet on 10/06 - monitor for any aspiration * Moderate deficits to attention, executive function, problem solving and reasoning. 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 Secondary prevention of CVA. * Continue aspirin and clopidogrel. Continue atorvastatin. * Per conversation with on-call hospitalist at [facility], 10/02/2018 , blood pressure parameters are to keep systolic between 110 and 160. Headaches, likely related to carotid artery dissections. Significant pain on night of 10/06- responded to meds and no Neurologic changes. * Completed Medrol Dosepak 10/05 * Continued on methocarbamol, acetaminophen, fiorecet - We discussed to rely more on the tylenol as the others shouldn't be fpc meds. * Discontinued ibuprofen due to increased risk of GI bleed, together with the other antiplatelet agents and the methylprednisolone. * Discussed the importance of staying well hydrated as well as taking appropriate breaks through out the day. Pt had a much better on 10/07. Elevated blood pressure and history of hypertension. * Restarted Losartan 25mg on 10/07. Continue to monitor and make adjustments as indicated. * Add prn hydralazine as we monitor for BP's >170. Seasonal allergies, on cetirizine. BPH * on tamsulosin. * Had been receiving bladder scans - Will have those d/c'd 10/08 - They have been low DISPOSITION: Discussed with case RN and OT. Lives at home with and for other adults including adopted son and a homeless friend of the son. Had been working 2 jobs as well as serving in the [employer]. Was considering selling home and moving to . Case Management to work with patient and family are. Plans given his level of disability. Tentative discharge date set for 2018. Followup per hospital discharge paperwork is planned with Dr. Lujan with Neurointerventional Radiology in approximately 2 weeks (after discharge 2018) and with primary care provider, Dr. Jet Leroy. 10/08/18 09:48 Subjective: Feeling pretty good this morning. Had a much better yesterday. Did try to be much better about not 'overdoing' it and allowing himself to rest/listen to his body. We again discussed the progression of neurologic recovery and the time frame it allows. Introduced discussion about return to work and also about Assistive technology tools that he can learn to use for work when that time is right. No fevers/chills. MITCHELL yesterday really only ever around a 2-08/06. Encouraged good hydration. Objective: Vital Signs Temp Pulse Resp BP Pulse Ox 98.7 F 54 L 15 124/93 H 94 10/08/18 06:32 10/08/18 06:32 10/08/18 06:32 10/08/18 08:16 10/08/18 06:32 10/07/18 10/08/18 10/09/18 05:59 05:59 05:59 Intake Total 465 1150 Output Total 1 Balance 464 1150 Physical Exam - Physical Exam General Appearance: alert, no apparent distress, other (Was walking back from the bathroom to his chair with the support of his . did pretty well observing things to the left during this gait pattern) EENT: other (mmm) Respiratory: lungs clear, normal breath sounds Cardiac/Chest: regular rate, rhythm Abdomen: non-tender, soft Skin: normal color Extremities: other (Has kinesiotape over the left upper extremity) Neuro/Psych: alert, normal mood/affect, other (Answers direct questions well. ) ICD10 Worksheet Patient Problems: Problems Problem Status Onset CVA (cerebral vascular accident) Acute
[2018-10-08] MEDS: ATORVASTATIN CALCIUM 40 MG TAB PO SCH (21:06)
[2018-10-08] MEDS: ACETAMINOPHEN 325 MG TAB PO SCH (23:42)
[2018-10-09] MEDS: ACETAMINOPHEN 325 MG TAB PO PRN ×2 (05:37→13:22)
[2018-10-09] MEDS: CLOPIDOGREL BISULFATE 75 MG TAB PO SCH (08:09)
[2018-10-09] MEDS: ASPIRIN EC 81 MG TAB PO SCH (08:09)
[2018-10-09] MEDS: TAMSULOSIN HCL 0.4 MG CAP PO SCH (08:09)
[2018-10-09] MEDS: FLUoxetine 20 MG CAP PO SCH (08:09)
[2018-10-09] MEDS: CETIRIZINE 10 MG TAB PO SCH (08:09)
[2018-10-09] MEDS: LOSARTAN POTASSIUM 25 MG TAB PO SCH (08:09)
[2018-10-09] MEDS: PANTOPRAZOLE SODIUM 40 MG TAB PO SCH (08:09)
[2018-10-09] MEDS: SENNOSIDES/DOCUSATE SODIUM TAB PO SCH ×2 (08:12→20:50)
--- NOTE | 2018-10-09 13:10 | SOAPPROG ---
SOAP Progress Note Assessment/Plan: Assessment: Cerebrovascular accident due to bilateral carotid and right internal carotid artery dissection and occlusion, status post stenting of the right internal carotid artery. * Initial functional independence measure is 79 on 10/04/2018, improved to 93 as of 10/09/2018. Independent in room and on the unit using a tracking pole with his . Independent bed mobility. Standby assist for transfers and walking with tracking pole. Climbed and descended 12 stairs with contact guard assist. Standby assist for car transfer. Does grooming and hygiene standing with supervision, incorporating left upper extremity. Upper body dressing with minimal assist for clothing orientation. Needs to keep his eyes on his hand to know where it is. If he does not watch his hand he drops objects. Lower body dressing requires supervision. Bathing requires setup and cues and supervision for safety, seated. Toileting is done with modified independence. * Has fall risk. Has decreased insight and judgment. Risk is compounded by the left visual field cut and left hemineglect. He requires continual supervision. * Continue PT and OT to optimize mobility and activities of daily living toward the modified independent level. Dysphagia and cognitive effects of cerebrovascular accident. * Continues to have left facial weakness, leaks at left labial seal, and left side pocketing. Advanced to regular food texture and thin liquids. * Mild to moderate deficits to attention, executive function, problem solving and reasoning. 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 Secondary prevention of CVA. Continue aspirin and clopidogrel. Continue atorvastatin. Attention to blood pressure and initiate antihypertensive medication as indicated. Per conversation with on-call hospitalist at [facility], 10/02/2018, blood pressure parameters are to keep systolic between 110 and 160. Headaches, likely related to carotid artery dissections. He may have relief of headaches as he sleeps better. Will continue the Medrol Dosepak, as well as methocarbamol and acetaminophen. Will discontinue ibuprofen due to increased risk of GI bleed, together with the other antiplatelet agents and the methylprednisolone. * Slept well after initiating scheduled acetaminophen at bedtime starting 2018 to try to prevent midnight headaches. Elevated blood pressure and history of hypertension. * Remained elevated after discontinuation of methylprednisolone. Losartan was initiated 10/07/2018, at 25 mg per day. Continue to monitor. * Discontinue midodrine 10/09/2018 as he has not had low blood pressures. Seasonal allergies, on cetirizine. BPH, on tamsulosin. DISPOSITION: Attended staffing, 15 min, 10/09/2018. Discussed with case management, nursing, dietitian, PT, OT, FILM HISTORIAN. Lives at home with and for other adults including adopted son and a homeless friend of the son. Had been working 2 jobs as well as serving in the [employer]. Was considering selling home and moving to . Tentative discharge date set for 10/13/2018. Followup per hospital discharge paperwork is planned with Dr. Lujan with Neurointerventional Radiology in approximately 2 weeks (after discharge 2018) and with primary care provider, Dr. Jet Leroy. 10/09/18 13:03 Subjective: No complaints. Sleeping well. Minimal headaches. Has improved movement of the left upper extremity but continues to have no sensation. Objective: Vital Signs Temp Pulse Resp BP Pulse Ox 36.6 C 60 16 152/83 H 95 10/09/18 07:56 10/09/18 07:56 10/09/18 07:56 10/09/18 07:56 10/09/18 07:56 10/08/18 10/09/18 10/10/18 05:59 05:59 05:59 Intake Total 1150 1000 350 Balance 1150 1000 350 - Time Spent With Patient Time Spent With Patient: Greater than 35 min floor time today, including more than 50% of time in coordination of care during staffing meeting, and counseling patient. Physical Exam - Physical Exam General Appearance: WD/WN, alert, no apparent distress Respiratory: normal breath sounds, No crackles, No rhonchi, No wheezing Cardiac/Chest: regular rate, rhythm, No diastolic murmur, No systolic murmur Skin: normal color, warm/dry Neuro/Psych: alert, normal mood/affect, oriented x 3, motor weakness (Normal range of motion at left shoulder and elbow. Beginning to show dexterity of fingers, but remains ataxic), sensory deficit (Left upper extremity.) ICD10 Worksheet Patient Problems: Problems Problem Status Onset CVA (cerebral vascular accident) Acute
[2018-10-09] MEDS: ACETAMINOPHEN 325 MG TAB PO SCH (19:12)
[2018-10-09] MEDS: ATORVASTATIN CALCIUM 40 MG TAB PO SCH (20:50)
[2018-10-10] MEDS: ACETAMINOPHEN 325 MG TAB PO PRN ×2 (02:36→14:01)
[2018-10-10] MEDS: CLOPIDOGREL BISULFATE 75 MG TAB PO SCH (08:17)
[2018-10-10] MEDS: PANTOPRAZOLE SODIUM 40 MG TAB PO SCH (08:17)
[2018-10-10] MEDS: SENNOSIDES/DOCUSATE SODIUM TAB PO SCH ×2 (08:17→21:20)
[2018-10-10] MEDS: CETIRIZINE 10 MG TAB PO SCH (08:17)
[2018-10-10] MEDS: FLUoxetine 20 MG CAP PO SCH (08:17)
[2018-10-10] MEDS: LOSARTAN POTASSIUM 25 MG TAB PO SCH (08:17)
[2018-10-10] MEDS: ASPIRIN EC 81 MG TAB PO SCH (08:17)
[2018-10-10] MEDS: TAMSULOSIN HCL 0.4 MG CAP PO SCH (08:17)
[2018-10-10] MEDS: ATORVASTATIN CALCIUM 40 MG TAB PO SCH (21:20)
[2018-10-10] MEDS: ACETAMINOPHEN 325 MG TAB PO SCH (21:20)
[2018-10-11] MEDS: LOSARTAN POTASSIUM 25 MG TAB PO SCH (07:48)
[2018-10-11] MEDS: CETIRIZINE 10 MG TAB PO SCH (07:49)
[2018-10-11] MEDS: PANTOPRAZOLE SODIUM 40 MG TAB PO SCH (07:49)
[2018-10-11] MEDS: CLOPIDOGREL BISULFATE 75 MG TAB PO SCH (07:49)
[2018-10-11] MEDS: TAMSULOSIN HCL 0.4 MG CAP PO SCH (07:49)
[2018-10-11] MEDS: FLUoxetine 20 MG CAP PO SCH (07:49)
[2018-10-11] MEDS: SENNOSIDES/DOCUSATE SODIUM TAB PO SCH ×2 (07:49→21:24)
[2018-10-11] MEDS: ASPIRIN EC 81 MG TAB PO SCH (07:49)
[2018-10-11] MEDS: ACET/CAFFEINE/BUTA FIORICET 1 EACH TAB PO PRN (18:21)
[2018-10-11] MEDS: ACETAMINOPHEN 325 MG TAB PO SCH (21:22)
[2018-10-11] MEDS: ATORVASTATIN CALCIUM 40 MG TAB PO SCH (21:22)
[2018-10-12] MEDS: CLOPIDOGREL BISULFATE 75 MG TAB PO SCH (07:59)
[2018-10-12] MEDS: ACETAMINOPHEN 325 MG TAB PO PRN ×2 (07:59→16:13)
[2018-10-12] MEDS: LOSARTAN POTASSIUM 50 MG TAB PO SCH (07:59)
[2018-10-12] MEDS: ASPIRIN EC 81 MG TAB PO SCH (07:59)
[2018-10-12] MEDS: TAMSULOSIN HCL 0.4 MG CAP PO SCH (07:59)
[2018-10-12] MEDS: FLUoxetine 20 MG CAP PO SCH (07:59)
[2018-10-12] MEDS: SENNOSIDES/DOCUSATE SODIUM TAB PO SCH ×2 (08:00→20:16)
[2018-10-12] MEDS: CETIRIZINE 10 MG TAB PO SCH (08:00)
[2018-10-12] MEDS: PANTOPRAZOLE SODIUM 40 MG TAB PO SCH (08:00)
--- NOTE | 2018-10-12 11:22 | SOAPPROG ---
SOAP Progress Note Assessment/Plan: Assessment: Cerebrovascular accident due to bilateral carotid and right internal carotid artery dissection and occlusion, status post stenting of the right internal carotid artery. * Initial functional independence measure is 79 on 10/04/2018, improved to 93 as of 10/09/2018. Independent in room and on the unit using a trekking pole with his . Independent bed mobility. Standby assist for transfers and walking with trekking pole. Climbed and descended 12 stairs with contact guard assist. Standby assist for car transfer. Does grooming and hygiene standing with supervision, incorporating left upper extremity. Upper body dressing with minimal assist for clothing orientation. Needs to keep his eyes on his hand to know where it is. If he does not watch his hand he drops objects. Lower body dressing requires supervision. Bathing requires setup and cues and supervision for safety, seated. Toileting is done with modified independence. * Has fall risk. Has decreased insight and judgment. Risk is compounded by the left visual field cut and left hemineglect. He requires continual supervision. * Continue PT and OT to optimize mobility and activities of daily living toward the modified independent level. Dysphagia and cognitive effects of cerebrovascular accident. * Continues to have left facial weakness, leaks at left labial seal, and left side pocketing. Advanced to regular food texture and thin liquids. * Mild to moderate deficits to attention, executive function, problem solving and reasoning. 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 Secondary prevention of CVA. Continue aspirin and clopidogrel. Continue atorvastatin. Attention to blood pressure and initiate antihypertensive medication as indicated. Per conversation with on-call hospitalist at [facility], 10/02/2018, blood pressure parameters are to keep systolic between 110 and 160. Headaches, likely related to carotid artery dissections. He may have relief of headaches as he sleeps better. Will continue the Medrol Dosepak, as well as methocarbamol and acetaminophen. Will discontinue ibuprofen due to increased risk of GI bleed, together with the other antiplatelet agents and the methylprednisolone. * Slept well after initiating scheduled acetaminophen at bedtime starting 2018 to try to prevent midnight headaches. Elevated blood pressure and history of hypertension. * Remained elevated after discontinuation of methylprednisolone. Losartan was initiated 10/07/2018, at 25 mg per day, increased to 50 mg q.day starting 2018. Continue to monitor. * Discontinue midodrine 10/09/2018 as he has not had low blood pressures. Seasonal allergies, on cetirizine. BPH, on tamsulosin. DISPOSITION: Attended staffing, 15 min, 10/09/2018. Discussed with case management, nursing, dietitian, PT, OT, AURICULAR ACUPUNCTURIST. Lives at home with and for other adults including adopted son and a homeless friend of the son. Had been working 2 jobs as well as serving in the [employer]. Was considering selling home and moving to . Tentative discharge date set for 10/13/2018. Followup per hospital discharge paperwork is planned with Dr. Lujan with Neurointerventional Radiology in approximately 2 weeks (after discharge 2018) and with primary care provider, Dr. Jet Leroy. 10/12/18 11:20 Subjective: No complaints. Sleeping well. Not in pain. No cough or dyspnea, no fevers or chills. Continues to have reduced sensation and reduced dexterity in the left upper extremity. Objective: Vital Signs Temp Pulse Resp BP Pulse Ox 36.4 C 71 18 161/96 H 93 10/12/18 07:56 10/12/18 07:56 10/12/18 07:56 10/12/18 08:44 10/12/18 07:56 10/11/18 10/12/18 10/13/18 05:59 05:59 05:59 Intake Total 1350 930 360 Balance 1350 930 360 Physical Exam - Physical Exam General Appearance: WD/WN, alert, no apparent distress Respiratory: normal breath sounds, No crackles, No rhonchi, No wheezing Cardiac/Chest: regular rate, rhythm, No edema, No diastolic murmur, No systolic murmur Skin: normal color, warm/dry Neuro/Psych: alert, normal mood/affect, oriented x 3, motor weakness (Left hand ataxia), sensory deficit (Left upper extremity) ICD10 Worksheet Patient Problems: Problems Problem Status Onset CVA (cerebral vascular accident) Acute
[2018-10-12] MEDS: ATORVASTATIN CALCIUM 40 MG TAB PO SCH (20:16)
[2018-10-12] MEDS: ACETAMINOPHEN 325 MG TAB PO SCH (21:07)
[2018-10-13] MEDS: ACETAMINOPHEN 325 MG TAB PO PRN (08:09)
[2018-10-13] MEDS: ASPIRIN EC 81 MG TAB PO SCH (08:10)
[2018-10-13] MEDS: CLOPIDOGREL BISULFATE 75 MG TAB PO SCH (08:10)
[2018-10-13] MEDS: TAMSULOSIN HCL 0.4 MG CAP PO SCH (08:10)
[2018-10-13] MEDS: LOSARTAN POTASSIUM 50 MG TAB PO SCH (08:10)
[2018-10-13 08:11] VITALS: BP 146/102
[2018-10-13] MEDS: CETIRIZINE 10 MG TAB PO SCH (08:11)
[2018-10-13] MEDS: PANTOPRAZOLE SODIUM 40 MG TAB PO SCH (08:11)
[2018-10-13] MEDS: SENNOSIDES/DOCUSATE SODIUM TAB PO SCH (08:11)
[2018-10-13] MEDS: FLUoxetine 20 MG CAP PO SCH (08:11)
--- NOTE | 2018-10-13 13:30 | GDS ---
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 DISCHARGE DIAGNOSIS: Cerebrovascular accident due to bilateral carotid and right internal carotid artery dissection, status post stenting of the right internal carotid artery. OTHER DISCHARGE DIAGNOSES: 1. Dysphagia and cognitive effects of cerebrovascular accident. 2. Headaches. 3. Hypertension. 4. BPH. COMPLICATIONS: There were none. CONSULTATIONS: There were none. PROCEDURES: There were none. HISTORY AND HOSPITAL COURSE: This patient was admitted from [facility]. He presented there on 09/22/2018, with headaches and light sensitivity, as well as left-sided numbness and weakness, dizziness, gait abnormality and cognitive slowing with difficulty speaking. These symptoms had been ongoing for 2 [address] angiogram showed bilateral internal carotid artery dissections and a right internal carotid artery occlusion. He was initially started on heparin drip. He had worsening of his condition and was found to have a right frontal MCA occlusion. On 09/26/2018, he had angioplasty and stent placement in the right internal carotid artery. Subsequent brain imaging showed evolution of right-sided cerebral infarctions involving the occipitoparietal and frontal lobes including white matter. He did well in inpatient rehabilitation, recovering function to the assisted- living level as of 10/09/2018, with continuing improvement in the subsequent 4 days prior to his discharge. He continued to have decreased sensation and position sense in the left lower and upper extremities and needed supervision when walking outdoors. He was able to ambulate 150 feet or more with a trekking pole with standby assist. He needed cues for safety when walking on a sidewalk or crossing the road. He was independent with bed mobility and transfers. He walked at modified independent level with or without a trekking pole indoors. He required standby assist on stairs with a rail. He continued to have left hemineglect and a left visual field cut. He was able to dress upper and lower body with modified independence using assistive device and was modified independent with activities of daily living otherwise. With ataxia, hemineglect and reduced sensation in the left upper extremity, he would occasionally collide with objects or furniture. He was unable to resume playing [email or web address], which had been one of his goals. Regarding cognitive function and dysphagia, he was advanced to regular food texture and thin liquids, though he continued to have some left facial weakness. He was noted to have [id number] deficits to attention, executive function, problem solving and reasoning. He remained stable on medications for secondary prevention of CVA, with aspirin , clopidogrel, atorvastatin and blood pressure management. He had headaches likely related to carotid artery dissection. These were effectively managed with acetaminophen or occasional Fioricet. Symptoms of benign prostatic hypertrophy were controlled with tamsulosin. DISCHARGE PLAN: DISCHARGE CONDITION: Good. DISPOSITION: Home with his family. ACTIVITY: Ad-benitez, but he should have supervision for ambulating outside. ALLERGIES: Doxycycline. DIET: Regular with regular texture and thin liquids. MEDICATIONS UPON DISCHARGE: 1. Fioricet 1 p.o. q.4 hours p.r.n. 2. Acetaminophen 650 mg p.o. q.6 hours p.r.n. 3. Aspirin 81 mg p.o. daily. 4. Atorvastatin 80 mg p.o. at bedtime. 5. Cetirizine 10 mg p.o. daily. 6. Clopidogrel 75 mg p.o. daily. 7. Fluoxetine 20 mg p.o. daily. 8. Losartan 50 mg p.o. daily. 9. Pantoprazole 40 mg p.o. daily. 10. Artificial Tears p.r.n. 11. Senna/docusate 1 p.o. twice daily. 12. Tamsulosin 0.4 mg p.o. daily. ISSUES TO BE ADDRESSED AT FOLLOWUP: 1. Mobility and activities of daily living. He will continue outpatient PT and OT. 2. Carotid artery dissection, status post stenting of the right internal carotid artery. He will follow up with neurointerventional radiology, Dr. Lujan at [facility]. 3. Hypertension and secondary prevention of CVA. He will follow up with his primary care provider, Dr. Leroy. Greater than 30 minutes was spent on this discharge summary including medication reconciliation, coordination of care and counseling patient and . The patient was seen and examined on the day of discharge. Copy requested to: DR. ZAINAB LUJAN [facility] /[id number]/MODL MTDD
== END 2018-10-13 11:40 | disposition home or self-care (01) | DRG 57 ==
LOC: F3E 13:18
PROVIDERS: ADMIT Internal Medicine Hospice and Palliative Medicine; ATTEND Internal Medicine Hospice and Palliative Medicine
DX: I69.354 Hemiplegia and hemiparesis following cerebral infarction affecting left non-dominant side (principal); I69.391 Dysphagia following cerebral infarction; I10 Essential (primary) hypertension; N40.0 Benign prostatic hyperplasia without lower urinary tract symptoms; Z95.5 Presence of coronary angioplasty implant and graft
CPT/HCPCS: 92507-GN; 92523-GN; 92526-GN; 92610-GN; 97110-GO; 97110-GP; 97112-GO; 97112-GP; 97116-GP; 97140-GO; 97162-GP; 97166-GO; 97530-GO; 97530-GP; 97535-GO